=== PATIENT | female | born 1995 | race Caucasian/White ===

== ENCOUNTER 2017-03-07 07:40 | Emergency (ER) | payer OTHER ==
[~2017-03-07] VITALS: Ht 152.4 cm; Wt 55.8 kg
[2017-03-07 07:41] VITALS: BP 132/86
[2017-03-07] MEDS ORDERED: TRAMADOL 50 MG50 MG PO ×2 (07:57→08:10)
[2017-03-07] MEDS ORDERED: KEFLEX500 MG PO (08:10)
== END 2017-03-07 08:39 | disposition home or self-care (01) ==
LOC: ER 07:40
DX: L60.0 Ingrowing nail (principal)